=== PATIENT | female | born 1995 | race Caucasian/White ===

== ENCOUNTER 2016-12-27 16:05 | Emergency (ER) | payer OTHER ==
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
[2016-12-27 17:38] VITALS: BP 117/56
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
== END 2016-12-27 17:51 | disposition home or self-care (01) ==
LOC: ER 16:05
DX: R07.81 Pleurodynia (principal); R19.7 Diarrhea, unspecified; Z88.8 Allergy status to other drugs, medicaments and biological substances; Z91.018 Allergy to other foods

== ENCOUNTER 2017-12-12 17:04 | Emergency (ER) | payer OTHER ==
[2017-12-12 17:18] VITALS: BP 113/64
--- NOTE | 2017-12-12 17:34 | ER Document Report ---
ED General - General Chief Complaint: Abdominal Pain Stated Complaint: ABDOMINAL PAIN Time Seen by Provider: 12/12/17 17:19 Notes: 22-year-old female here with complaints of pelvic pains described as "contractions" ongoing for the past 1 month. She describes them as intermittent lasting several seconds. She denies any dysuria hematuria or vaginal bleeding/discharge fevers chills. She has been seen at [facility] and [facility] and has had 3 different workups. She reports that the first time she went to [facility], she was "found to have PID" and reports to me that she refused the injection of antibiotics they were going to give her "because they could not find my veins". She reports that they did an ultrasound and did not find anything unusual. She then went to [facility] where they performed blood work and urine tests and another ultrasound and told her she had a cyst or other abnormality of an ovary and that she needed to have it checked out. She then went back to [facility] and had another workup which was unremarkable. She has not yet followed up outpatient with an MATHEMATICAL ENGINEERING TECHNICIAN but tells me that she does have insurance. She cannot give me a good explanation as to why she has not yet seen an outpatient MATHEMATICAL ENGINEERING TECHNICIAN. She is here currently demanding a fourth workup "to try to figure out what is going on". TRAVEL OUTSIDE OF THE [place] IN LAST 30 DAYS: No - Related Data Allergies/Adverse Reactions: kiwi Allergy (Verified 12/27/16 16:21) propranolol [From Inderal [place]] Allergy (Verified 12/27/16 16:21) Past Medical History - Social History Smoking Status: Unknown if Ever Smoked Family History: Other - adopted Renal/ Medical History: Denies: Hx Peritoneal Dialysis Past Surgical History: Reports: Hx Oral Surgery - wisdom - Immunizations Hx Diphtheria, Pertussis, Tetanus Vaccination: Yes Review of Systems - Review of Systems Notes: See history of present illness for pertinent positive review of systems; otherwise all review of systems have been reviewed and are negative Physical Exam - Vital signs Vitals: Temp Pulse Resp BP Pulse Ox 99.7 F 71 16 113/64 98 12/12/17 17:17 12/12/17 17:17 12/12/17 17:17 12/12/17 17:17 12/12/17 17:17 - Notes Notes: PHYSICAL EXAMINATION: GENERAL: Well-appearing and in no acute distress. HEAD: Atraumatic, normocephalic. EYES: Pupils equal round and reactive to light, extraocular movements intact, sclera anicteric, conjunctiva are normal. ENT: nares patent, oropharynx clear without exudates. Moist mucous membranes. NECK: Normal range of motion, supple without lymphadenopathy LUNGS: CTAB and equal. No wheezes rales or rhonchi. HEART: Regular rate and rhythm without murmurs ABDOMEN: Soft, minimal right lateral suprapubic tenderness. No right lower quadrant tenderness. No guarding, no rebound EXTREMITIES: Normal range of motion, no pitting edema. No cyanosis. NEUROLOGICAL: Cranial nerves grossly intact. Normal sensory/motor exams. PSYCH: Normal mood, normal affect. SKIN: Warm, Dry, normal turgor, no rashes or lesions noted Course - Re-evaluation Re-evalutation: 12/12/17 17:38 MEDICAL DECISION MAKING: Per the patient's own report, she has had 3 different ultrasounds and workup for these symptoms The symptoms have been ongoing for 4 weeks now She has not yet made the attempts to follow up with an outpatient MATHEMATICAL ENGINEERING TECHNICIAN She is now here demanding a fourth workup of the same symptoms Of note, she does not currently have any pain or symptoms at the time of this ED visit I have appropriately screened this patient for an emergency medical condition and one does not exist at this time I have discussed with her, at length, she does not have an emergency medical condition Upon hearing this, she becomes angry and is asking for her discharge paperwork I have discussed with her, at length, that she will need to follow-up with an outpatient MATHEMATICAL ENGINEERING TECHNICIAN to continue the workup - Vital Signs Vital signs: Temp Pulse Resp BP Pulse Ox 99.7 F 71 16 113/64 98 12/12/17 17:17 12/12/17 17:17 12/12/17 17:17 12/12/17 17:17 12/12/17 17:17 Discharge - Discharge Clinical Impression: Pelvic pain Condition: Good Disposition: HOME, SELF-CARE Additional Instructions: You have been evaluated on 3 separate occasions at other medical facilities. Please obtain those records and establish care with an MATHEMATICAL ENGINEERING TECHNICIAN. You do not have any emergency medical conditions today. YOU MUST FOLLOW UP WITH A PRIMARY DOCTOR , OR PREFERABLY AN OBGYN, REGARDING FURTHER EVALUATION OF YOUR PELVIC PAINS THAT HAVE BEEN ONGOING FOR THE PAST 1 MONTH. Prescriptions: Tramadol HCl [Ultram] 50 mg PO BIDP PRN #14 tablet PRN Reason:
== END 2017-12-12 17:42 | disposition home or self-care (01) ==
LOC: ER 17:04
DX: R10.2 Pelvic and perineal pain (principal); Z91.018 Allergy to other foods; Z88.8 Allergy status to other drugs, medicaments and biological substances
CPT/HCPCS: 99283

== ENCOUNTER → 2018-01-15 | Outpatient (CLI) | payer OTHER ==
[2018-01-15 14:28] LABS: BACTERIA (WET MOUNT) 4+ BACTERIA SEEN; EPITHELIALS (WET MOUNT) 4+ EPITHELIALS SEEN; RBCS (WET MOUNT) 2+ RBCS SEEN; T.VAGINALIS (WET MOUNT) NO TRICHOMONAS SEEN; WBCS (WET MOUNT) 4+ WBCS SEEN; YEAST (WET MOUNT) NO YEAST SEEN
== END ==
LOC: LAB 14:17
PROVIDERS: ATTEND Nurse Practitioner Acute Care
DX: N89.8 Other specified noninflammatory disorders of vagina (principal)
CPT/HCPCS: 87210

== ENCOUNTER 2018-11-23 16:57 | Emergency (ER) | payer OTHER ==
[2018-11-23 17:16] VITALS: BP 133/53
[2018-11-23] MEDS ORDERED: ACETAMINOPHEN 325 MG TABLET PO ONE (17:26)
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
[2018-11-23] MEDS ORDERED: LIDOCAINE 5% (700 MG) TRANSDERMAL ADH..PATCH TP ONE (18:53)
== END 2018-11-23 19:16 | disposition home or self-care (01) ==
LOC: ER 16:57
DX: S93.401A Sprain of unspecified ligament of right ankle, initial encounter (principal); R07.81 Pleurodynia; Y04.2XXA Assault by strike against or bumped into by another person, initial encounter; Y92.000 Kitchen of unspecified non-institutional (private) residence as the place of occurrence of the external cause
CPT/HCPCS: 99284; 81025; 73610; 73630; 71101; L1902

== ENCOUNTER → 2018-11-23 | Outpatient (CLI) | payer OTHER ==
[2018-11-23 17:31] LABS: BACTERIA (WET MOUNT) 3+ BACTERIA SEEN; EPITHELIALS (WET MOUNT) 4+ EPITHELIALS SEEN; T.VAGINALIS (WET MOUNT) NO TRICHOMONAS SEEN; WBCS (WET MOUNT) FEW WBCS SEEN; YEAST (WET MOUNT) NO YEAST SEEN
[2018-11-23 19:07] LABS: CHLAM PCR NOT DETECTED (NOT DETECT); GON PCR NOT DETECTED (NOT DETECT)
== END ==
LOC: LAB 17:22
PROVIDERS: ATTEND Nurse Practitioner Family
DX: N89.8 Other specified noninflammatory disorders of vagina (principal); R30.0 Dysuria
CPT/HCPCS: 87086; 87210; 87491; 87591

== ENCOUNTER 2020-03-21 17:47 | Emergency (ER) | payer OTHER, BC ==
--- NOTE | 2020-03-21 18:02 | ER Document Report ---
ED Medical Screen (RME) - General Chief Complaint: OB Problem (<20wks) Stated Complaint: OB PROBLEM Time Seen by Provider: 03/21/20 17:56 Primary Care Provider: GURPREET PABLO FNP-C [Primary Care Provider] - Follow up as needed Mode of Arrival: Ambulatory Information source: Patient Notes: 24-year-old female approximately 4 to 5 weeks , last menstrual period February 20, G4, P1 with a recent miscarriage in November presents to the emergency department with complaints of some abdominal cramps. She denies other symptoms such as fever vomiting diarrhea. Patient requesting her hCG level. I have greeted and performed a rapid initial assessment of this patient. A comprehensive ED assessment and evaluation of the patient, analysis of test results and completion of the medical decision making process will be conducted by additional ED providers. TRAVEL OUTSIDE OF THE [place] IN LAST 30 DAYS: No - Related Data Allergies/Adverse Reactions: kiwi Allergy (Verified 03/21/20 17:55) propranolol [From Inderal [place]] Allergy (Verified 03/21/20 17:55) Past Medical History Renal/ Medical History: Denies: Hx Peritoneal Dialysis Past Surgical History: Reports: Hx Oral Surgery - wisdom - Immunizations Hx Diphtheria, Pertussis, Tetanus Vaccination: Yes Doctor's Discharge - Discharge Referrals: GURPREET PABLO FNP-C [Primary Care Provider] - Follow up as needed
[2020-03-21 18:38] LABS: ABSOLUTE EOSINOPHILS # (AUTO) 0.1 10^3/uL (0.0-0.6); ABSOLUTE LYMPHOCYTES (AUTO) 3.3 10^3/uL (0.5-4.7); ABSOLUTE MONOCYTES (AUTO) 0.9 10^3/uL (0.1-1.4); ABSOLUTE NEUT (AUTO) 5.8 10^3/uL (1.7-8.2); BASOPHILS % (AUTO) 0.2 % (0-2); HEMATOCRIT 40.6 % (36.0-47.0); HEMOGLOBIN 13.9 g/dL (12.0-15.5); LYMPHOCYTES % (AUTO) 32.4 % (13-45); MEAN CORPUSCULAR HGB CONC 34.2 g/dL (32.0-36.0); MEAN CORPUSCULAR VOLUME 85 fl (80-97); MONOCYTES % (AUTO) 9.3 % (3-13); PLATELET COUNT 249 10^3/uL (150-450); RED CELL DISTRIBUTION WIDTH 14.4 % (11.5-14.0); SEGMENTED NEUTROPHILS % (AUTO) 57.1 % (42-78); TOTAL CELLS COUNTED % (AUTO) 100 %; WHITE BLOOD COUNT 10.2 10^3/uL (4.0-10.5)
[2020-03-21 18:46] LABS: APPEARANCE,URINE SLIGHTLY-CLOUDY; BILIRUBIN,URINE NEGATIVE (NEGATIVE); COLOR,URINE YELLOW; GLUCOSE, URINE NEGATIVE (NEGATIVE); KETONES,URINE NEGATIVE (NEGATIVE); LEUKOCYTE ESTERASE,URINE TRACE (NEGATIVE); NITRITE,URINE NEGATIVE (NEGATIVE); PROTEIN,URINE NEGATIVE (NEGATIVE); URINE SPECIFIC GRAVITY 1.026; UROBILINOGEN,URINE NEGATIVE mg/dL (<2.0)
[2020-03-21 18:59] LABS: ALBUMIN 4.5 g/dL (3.5-5.0); ALKALINE PHOSPHATASE 51 U/L (38-126); ANION GAP 7 (5-19); ASPARTATE AMINO TRANSFERASE 18 U/L (14-36); BILIRUBIN,TOTAL 0.2 mg/dL (0.2-1.3); BLOOD UREA NITROGEN 20 mg/dL (7-20); CALCIUM 9.6 mg/dL (8.4-10.2); CARBON DIOXIDE 26 mmol/L (22-30); CHLORIDE 104 mmol/L (98-107); GLUCOSE 96 mg/dL (75-110); POTASSIUM 4.3 mmol/L (3.6-5.0); TOTAL PROTEIN 7.6 g/dL (6.3-8.2)
--- NOTE | 2020-03-21 19:01 | ER Document Report ---
ED GI/ - General Chief Complaint: Abdominal Cramping Stated Complaint: OB PROBLEM Time Seen by Provider: 03/21/20 17:56 Primary Care Provider: GURPREET PABLO FNP-C [NURSE PRACTITIONER] - Follow up as needed Mode of Arrival: Ambulatory Information source: Patient Notes: 24-year-old female with no previous medical problems 4 para 1 presents to the emergency room requesting ultrasound and hormone levels. Patient had a recent miscarriage in November was supposed to see her OB today for an ultrasound and blood work unfortunately the appointment got canceled. She is getting ready to move and is unsure when she will be able to secure follow-up care wants to check her hormone levels and get an ultrasound due to her recent miscarriage. She denies any nausea, vomiting, no abdominal pain, no vaginal bleeding. No other symptoms. TRAVEL OUTSIDE OF THE [place] IN LAST 30 DAYS: No - Related Data Allergies/Adverse Reactions: kiwi Allergy (Verified 03/21/20 17:55) propranolol [From Inderal [place]] Allergy (Verified 03/21/20 17:55) Past Medical History - General Information source: Patient - Social History Smoking Status: Never Smoker Chew tobacco use (# tins/day): No Frequency of alcohol use: None Drug Abuse: None Family History: Other - adopted Patient has homicidal ideation: No Renal/ Medical History: Denies: Hx Peritoneal Dialysis Past Surgical History: Reports: Hx Oral Surgery - wisdom - Immunizations Hx Diphtheria, Pertussis, Tetanus Vaccination: Yes Review of Systems - Review of Systems Constitutional: No symptoms reported EENT: No symptoms reported Cardiovascular: No symptoms reported Respiratory: No symptoms reported Gastrointestinal: No symptoms reported Genitourinary: No symptoms reported Female Genitourinary: . denies: Vaginal discharge, Vaginal bleeding Skin: No symptoms reported Neurological/Psychological: No symptoms reported -: Yes All other systems reviewed and negative Physical Exam - Vital signs Vitals: Temp 99.3 F 03/21/20 17:56 - General General appearance: Appears well, Alert In distress: None - Respiratory Respiratory status: No respiratory distress Chest status: Nontender Breath sounds: Normal Chest palpation: Normal - Cardiovascular Rhythm: Regular Heart sounds: Normal auscultation Murmur: No - Abdominal Inspection: Normal Distension: No distension Bowel sounds: Normal Tenderness: Nontender Organomegaly: No organomegaly - Back Back: Normal, Nontender. No: CVA tenderness - Neurological Neuro grossly intact: Yes Cognition: Normal Orientation: AAOx4 Stephanie Coma Scale Eye Opening: Spontaneous Stephanie Coma Scale Verbal: Oriented Stephanie Coma Scale Motor: Obeys Commands Stephanie Coma Scale Total: 15 Speech: Normal Motor strength normal: LUE, RUE, LLE, RLE Sensory: Normal - Skin Skin Temperature: Warm Skin Moisture: Dry Skin Color: Normal Course - Re-evaluation Re-evalutation: 03/21/20 19:38 Patient is resting comfortably she remains asymptomatic. Reviewed hCG level of 199 ultrasound results with questionable gestational sac with a date of 5 weeks 5 days. Patient aware of the need to follow-up soon as possible with an INSURANCE COORDINATOR for repeat hormone levels in 48 hours. She was given strict return to the emergency room guidelines. Return for any new or worsening symptoms. All questions were answered. Patient verbalized understanding and agrees with plan of care. - Vital Signs Vital signs: Temp Pulse Resp BP Pulse Ox 98.3 F 66 18 131/57 H 97 03/21/20 19:27 03/21/20 19:27 03/21/20 19:27 03/21/20 19:27 03/21/20 19:27 - Laboratory Result Diagrams: 03/21/20 18:20 03/21/20 18:20 Laboratory results interpreted by me: 03/21/20 03/21/20 03/21/20 18:20 18:20 18:20 RDW 14.4 H Sodium 136.5 L Beta HCG, Quant 199.09 H Ur Leukocyte Esterase TRACE H - Diagnostic Test Radiology reviewed: Reports reviewed Discharge - Discharge Clinical Impression: Miscarriage, threatened, early Qualifiers: Weeks of gestation: less than 8 weeks Qualified Code(s): Z3A.01 - Less than 8 weeks gestation of Condition: Stable Disposition: HOME, SELF-CARE Instructions: ([facility]), Threatened Miscarriage ([facility]) Additional Instructions: Repeat hCG in 48 hours. Return for any new or worsening symptoms. Referrals: GURPREET PABLO FNP-C [NURSE PRACTITIONER] - Follow up as needed AURELIA OLIVO MD [ACTIVE STAFF] - Follow up in 3-5 days (You should have a repeat hCG level in 48 hours.)
--- NOTE | 2020-03-21 19:28 | RADIOLOGY REPORT (SQ) ---
EXAM DESCRIPTION: U/S OB TRANSVAGINAL W/O DOP IMAGES COMPLETED DATE/TIME: 03/21/2020 7:15 pm REASON FOR STUDY: preg cramping COMPARISON: None. TECHNIQUE: Transvaginal static and realtime grayscale images acquired of the pelvis. Additional prince cted spectral and color Doppler images recorded. All images stored on PACs. CLINICAL AGE: 4 week 1 day. bHCG: Pending. LIMITATIONS: None. FINDINGS: UTERUS: No masses. No anomalies. GESTATIONAL SAC: Possible small gestational sac, corresponding to a 5 week 5 day gestation. YOLK SAC: No. POLE: None present. RIGHT ADNEXA: Normal ovary with normal vascular flow. No adnexal free fluid. No adnexal masses. LEFT ADNEXA: Normal ovary with normal vascular flow. No adnexal free fluid. No adnexal masses. FREE FLUID: None. OTHER: No other significant finding. IMPRESSION: POSSIBLE EARLY INTRAUTERINE . BHCG LEVEL NOT AVAILABLE FOR CORRELATION WITH US FINDINGS. CONSIDER F/U BHCG AND/OR ULTRASOUND FOR VERIFICATION AND TO EXCLUDE ECTOPIC . Trimester of : First trimester - 0 to 13 weeks. TECHNICAL DOCUMENTATION: JOB ID: [id number] 2010 [employer]- All Rights Reserved Reading location - IP/workstation name: [email or web address]
[2020-03-21 20:17] VITALS: BP 123/69
== END 2020-03-21 20:15 | disposition home or self-care (01) ==
LOC: ER 17:47
DX: O20.0 Threatened abortion (principal); Z3A.01 Less than 8 weeks gestation of pregnancy; Z87.59 Personal history of other complications of pregnancy, childbirth and the puerperium; Z91.018 Allergy to other foods; Z88.8 Allergy status to other drugs, medicaments and biological substances
CPT/HCPCS: 36415; 76817; 80053; 81001; 84702; 85025; 99284